=== PATIENT | male | born 1995 | race Caucasian/White ===

== ENCOUNTER 2020-06-06 02:36 | Emergency (ER) | payer OTHER, SELFPAY ==
[2020-06-06 02:56] VITALS: BP 177/79; PULSE 85; RESP 18; TEMP 36.2; O2SAT 99; BMI 32.1
--- NOTE | 2020-06-06 03:06 | ED.DENTAL ---
HPI - Dental/Oral General Chief complaint: Dental/Oral Stated complaint: Dental pain Time Seen by Provider: 06/06/20 03:06 Source: patient Mode of arrival: ambulatory Limitations: no limitations History of Present Illness HPI Narrative: 24-year-old male with dental pain for 2 months that has waxed and waned and he has been on antibiotics previously. He states he has been to see the dentist, but states that the 14. Tooth has continued to give him pain on using hot and cold liquids. In addition, patient is complaining of some left maxillary sinus discomfort but denies any fevers, chills, difficulty breathing, difficulty swallowing. Related Data Previous Rx's Medication Instructions Recorded amoxicillin-pot clavulanate 1 tab PO Q12H 10 Days #20 tab 06/06/20 [Augmentin] Allergies Allergy/AdvReac Type Severity Reaction Status Date / Time No Known Allergies Allergy Unverified 04/09/20 17:51 Review of Systems Review of Systems: Pertinent positives and negatives as stated in HPI 10 point review of systems otherwise negative. PMFSH Past Medical History Source: nursing notes reviewed Medical History HTN (hypertension) Social History Social History Alcohol intake: never Smoking Status: Never smoker Use of substances other than those prescribed or required for medical reasons: No Advance Directives: No Advance Directives Information Provided: No Physical Exam Vital Signs: Vital Signs: Last Vital Signs Temp 97.1 F 06/06/20 02:56 Pulse 85 06/06/20 02:56 Resp 18 06/06/20 02:56 BP 177/79 H 06/06/20 02:56 Pulse Ox 99 06/06/20 02:56 Body Mass Index 32.1 VITAL SIGNS: Reviewed. GENERAL: Well developed, well nourished, in no acute distress. HEAD: Normocephalic/atraumatic, EYES: PERRLA, EOMI intact without pain, no nystagmus/pallor/icterus noted EARS: Ext canals without abnormality, TMs non-bulging and non-erythematous NOSE: Nares patent bilateral OROPHARYNX: no oral lesions noted, posterior pharynx clear and non-erythematous without noted tonsillar enlargement/erythema/exudates; No pain on tapping either molar 13 or 14 and no noted abscess but there is noted swelling to the left cheek. NECK: Supple, no adenopathy LUNGS: Normal breath sounds. No adventitious sounds or accessory muscle use. SpO2<99> CARDIOVASCULAR: Regular rate and rhythm without noted murmurs, no JVD or lower extremity edema. ABDOMEN: Soft, non-tender, non-distended with bowel sounds. No rigidity. No guarding. No palpable masses or hernias noted MUSCULOSKELETAL: No tenderness, deformities, or effusions noted on gross inspection. EXTREMITIES: No cyanosis, clubbing or edema. SKIN: Inspection of the skin reveals no rashes, ulcerations, jaundice, pallor, or petechiae. NEUROLOGIC: Alert and oriented x 4. Strength and sensation to light touch were grossly intact x 4. Course Course Course Narrative: This is a 24-year-old male with history and clinical presentation consistent with tooth infection likely secondary to 1 of the molar roots given the symptoms involving the left maxillary sinus, but there is no evidence of trismus or airway compromise. Patient was treated with combination analgesics and initial antibiotics and will be discharged with a prescription as an outpatient and instructed to follow-up with the dentist as soon as possible. Patient was discharged in stable condition. Discharge Plan Discharge Clinical Impression: Toothache Patient Disposition: Home, Self-Care Instructions: Dental Abscess (ED) Additional Instructions: complete the entire course of antibiotics and please follow-up with a dentist within the next 1-2 days. The patient and/or family acknowledge understanding of results (as applicable), diagnosis, treatment plan, need for follow up, and symptoms that should prompt a return to the emergency room. Prescriptions: New amoxicillin-pot clavulanate [Augmentin] 875-125 mg tablet 1 tab PO Q12H 10 Days Qty: 20 RF: 0 Interventions: ED Discharge Assessment Last Done: 06/06/20 03:51 Discharge Date/Time: 06/06/20 03:52
[2020-06-06] MEDS: Amoxicillin/Potassium Clav 875 MG TABLET PO (03:16)
[2020-06-06] MEDS: Ketorolac Tromethamine 15 MG/ML VIAL IM (03:16)
[2020-06-06] MEDS: Acetaminophen 325 MG TABLET 975 MG PO (03:17)
== END 2020-06-06 03:52 | disposition home or self-care (01) ==
LOC: HO.ED 03:15
PROVIDERS: Emergency Provider Student in an Organized Health Care Education/Training Program
DX: K08.89 Other specified disorders of teeth and supporting structures (principal)
CPT/HCPCS: 96372; 99284; J1885

== ENCOUNTER 2020-08-26 12:37 | Outpatient (REF) | payer OTHER, SELFPAY | END 2020-08-26 12:38 | disposition home or self-care (01) | LOC: HO.LAB 12:37 | PROVIDERS: Visit Provider Internal Medicine | DX: Z20.822 Contact with and (suspected) exposure to COVID-19 (principal) | CPT/HCPCS: 36415; C9803; U0003; U0005 ==

== ENCOUNTER 2021-02-26 08:19 | Emergency (ER) | payer OTHER, SELFPAY ==
[2021-02-26 08:43] VITALS: BP 156/99; PULSE 92; RESP 18; TEMP 36.8; O2SAT 98; BMI 34.8
[2021-02-26] MEDS: Diphth,Pertus(ACell),Tet Adult 0.5 ML SYRINGE IM (10:07)
[2021-02-26] MEDS: Tetracaine HCl/PF 0.5% Oph Sol 4 ML DROPS 3 DROP EYE-LEFT (10:09)
[2021-02-26] MEDS: Fluorescein Sodium STRIP 1 STRIP EYE-LEFT (10:09)
--- NOTE | 2021-02-26 10:10 | ED.EYEPROB ---
HPI - Eye Problem General Chief complaint: Eye Problems Stated complaint: something in pts eye Time Seen by Provider: 02/26/21 09:51 Source: patient Mode of arrival: ambulatory Limitations: no limitations History of Present Illness HPI Narrative: Patient presents ED for left eye irritation. 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 Patient unknown when last tetanus shot. Patient states slight blurry vision. Related Data Previous Rx's Medication Instructions Recorded amoxicillin 875 mg-potassium 1 tab PO Q12H 10 Days #20 tab 06/06/20 clavulanate 125 mg tablet (Augmentin) erythromycin 5 mg/gram (0.5 %) eye 0.5 inch OPHTHALMIC (EYE) QID 7 02/26/21 ointment Days #3.5 g naproxen 500 mg tablet 500 mg PO BID PRN #20 tab 02/26/21 Allergies Allergy/AdvReac Type Severity Reaction Status Date / Time No Known Allergies Allergy Verified 02/26/21 08:42 Review of Systems Review of Systems: Yes all other systems are reviewed and are negative Constitutional: Constitutional: Reports as per HPI and Reports no additional constitutional complaints Eyes: Eyes: Reports as per HPI and Reports no additional eye complaints Comments: Left eye irritation ENT: Reports system reviewed and no additional complaints, except as documented and Reports as per HPI Cardiovascular: Cardiovascular: Reports as per HPI and Reports no additional cardiovascular complaints Respiratory: Respiratory: Reports as per HPI and Reports no additional respiratory complaints Gastrointestinal: Gastrointestinal: Reports as per HPI and Reports no additional gastrointestinal complaints Musculoskeletal: Musculoskeletal: Reports no additional musculoskeletal complaints and Reports as per HPI Integumentary/Breasts: Skin/Breast: Reports system reviewed and no additional complaints, except as docu and Reports as per HPI Neurologic: Reports system reviewed and no additional complaints, except as documented and Reports as per HPI Psychiatric: Psychiatric: Reports no additional psychiatric complaints and Reports as per HPI PMF Past Medical History Medical History HTN (hypertension) Social History Social History Alcohol intake: never Advance Directives: Yes Advance Directives Information Provided: Yes Advance Directives on File: No Physical Exam Vital Signs: Vital Signs: Last Vital Signs Temp 98.3 F 02/26/21 08:43 Pulse 92 02/26/21 08:43 Resp 18 02/26/21 08:43 BP 156/99 H 02/26/21 08:43 Pulse Ox 98 02/26/21 08:43 Body Mass Index 34.8 Const: General: cooperative, healthy appearing, comfortable, no acute distress, well developed, alert, awake and Physically active Orientation/consciousness: patient oriented x3 HENMT: Head: Yes normal to inspection, Yes No palpable skull fracture present, Yes normocephalic, Yes atraumatic and No abrasion Eyes: Other: Right eye are normal. Left eye: Positive for redness. Positive for spec/foreign body on cornea. Tetracaine and fluorescein dye use. Visual acuity of right eye is 20/40. Visual acuity of left eye 20/25 Neck: Neck: Yes normal visual inspection, Yes full ROM, Yes no lymphadenopathy, Yes no meningeal signs, Yes trachea midline, Yes supple and No tender Chest: Chest palpation & inspection: normal inspection of the chest and normal palpation of entire chest wall Resp: Effort & Inspection: normal respiratory effort and able to speak in complete sentences Auscultation: clear to auscultation bilaterally Cardio: Jugular venous distension: no JVD Heart sounds: S1 normal heart sound present and S2 normal heart sound present GI: Inspection: Yes normal to inspection and No abdominal wall ecchymosis Palpation (GI): Soft to palpation, not firm, nontender, no guarding and not rigid : General: No CVA tenderness and Yes no CVA tenderness Back/Spine/Pelvis: Back: no CVA tenderness, No CVA tenderness and No back tenderness Skin: General skin exam: no rashes or lesions noted and elasticity normal Neuro: General: patient oriented x3, gait normal, no meningeal signs and CN's II-XI intact bilaterally Cranial nerves: Yes CN's II-XII intact bilaterally Extrem: General: Yes normal to inspection and Yes full ROM Psych: Appearance: grossly normal, well kempt and not disheveled Course Course Course Narrative: Will have eye exam. Reevaluation(s) Reevaluation #1: Tdap ordered. Partial removal of SPECT from cornea. Some still remain on eye not able to be moved. Will be discharged with erythromycin ointment. Spoke with the office of Dr. Burroughs and they states he was see patient in the clinic. Patient was discharged and sent to Dr. Burroughs office. Time: 10:31 MDM - Eye Problem MDM Narrative Medical decision making narrative: Foreign body I Discharge Plan Discharge Clinical Impression: Foreign body in eye Patient Disposition: Home, Self-Care Instructions: Eye Foreign Body (ED) Additional Instructions: There was partial removal of SPECT any eye. You need to follow-up with eye doctor. You will be discharged with erythromycin ointment. Return to the ED immediately for any eye pain, eye discharge, change in vision, loss of vision, worsening redness, headache, fever, chills, or any other concerning symptoms. Prescriptions: New erythromycin 5 mg/gram (0.5 %) ointment 0.5 inch ophthalmic (eye) QID 7 Days Qty: 3.5 RF: 0 naproxen 500 mg tablet 500 mg PO BID PRN (Reason: pain) Qty: 20 RF: 0 No Action amoxicillin-pot clavulanate [Augmentin] 875-125 mg tablet 1 tab PO Q12H 10 Days Qty: 20 RF: 0 Referrals: Augie Burroughs [Physician] - 2 days (Left eye foreign body in cornea.) Stand Alone Forms: Work/School Release Interventions: ED Discharge Assessment Last Done: 02/26/21 10:53 Discharge Date/Time: 02/26/21 10:57 Print Language: Lithuanian
== END 2021-02-26 10:57 | disposition home or self-care (01) ==
PROVIDERS: Emergency Provider Emergency Medicine Emergency Medical Services
DX: T15.02XA Foreign body in cornea, left eye, initial encounter (principal); I10 Essential (primary) hypertension; X58.XXXA Exposure to other specified factors, initial encounter; Y93.89 Activity, other specified; Y92.89 Other specified places as the place of occurrence of the external cause; Y99.0 Civilian activity done for income or pay
CPT/HCPCS: 90471; 90715; 99284

== ENCOUNTER 2021-04-26 12:36 | Outpatient (REF) | payer OTHER, SELFPAY | END 2021-04-26 12:37 | disposition home or self-care (01) | LOC: HO.LAB 12:36 | PROVIDERS: Visit Provider Internal Medicine | DX: Z20.822 Contact with and (suspected) exposure to COVID-19 (principal) | CPT/HCPCS: U0003; U0005 ==

== ENCOUNTER 2021-07-28 07:39 | Outpatient (REF) | payer OTHER, SELFPAY ==
[2021-07-28 09:00] LABS: COVID-19 Test Negative (Negative)
== END 2021-07-28 07:40 | disposition home or self-care (01) ==
LOC: HO.LAB 07:39
PROVIDERS: Visit Provider Internal Medicine
DX: Z20.822 Contact with and (suspected) exposure to COVID-19 (principal)
CPT/HCPCS: 87635; C9803

== ENCOUNTER 2022-08-06 14:44 | Emergency (ER) | payer OTHER, SELFPAY ==
--- NOTE | ~2022-08-06 | CT_ITS ---
EXAMINATION: CT ABDOMEN AND PELVIS WITH CONTRAST CLINICAL INFORMATION: Left lower quadrant pain with diarrhea and fever COMPARISON: None TECHNIQUE: Multidetector volumetric images were obtained from the superior aspect of the liver through the pubic symphysis following administration 85 mL of Omnipaque 350 intravenous contrast. Sagittal and coronal reformatted images were obtained on the technologist's workstation. Oral contrast: No This CT examination was performed using dose optimization techniques as appropriate, variously including the following: *Automated exposure control *Adjustment of mA and/or kV according to patient size (this includes techniques or standardized protocols for targeted exams where dose is matched to indication/reason for exam; i.e. extremities or head) *Use of iterative reconstruction technique DLP: 839 mGy-cm FINDINGS: LUNG BASES: Small patchy groundglass/nodular opacities the medial lung bases may represent atelectasis, small volume aspiration, or small localized inflammatory infectious process. Correlate clinically. LIVER, GALLBLADDER, AND BILIARY TREE: Normal hepatic size. Diffuse hepatic hypoattenuation/steatosis. No liver lesion or biliary ductal dilation. The gallbladder is unremarkable with no evidence of radiopaque gallstones, gallbladder wall thickening, or obvious pericholecystic inflammatory changes. PANCREAS: Unremarkable. SPLEEN: Unremarkable. ADRENAL GLANDS: Unremarkable. KIDNEYS AND URETERS: The kidneys are normal in size, shape, and attenuation. No hydronephrosis, hydroureter, or calculi seen. No perinephric stranding. BLADDER: Unremarkable. GASTROINTESTINAL TRACT: Small hiatal hernia. No dilated bowel loops. Mild sigmoid diverticulosis. No evidence of acute diverticulitis. Slightly thick-walled appearance of the colon is felt secondary to the lack of distention. No pericolonic inflammatory changes to suggest specific evidence of colitis. Normal appendix. No ascites or free air. ABDOMINAL WALL: Possible small fat-containing left inguinal hernia. LYMPH NODES: There are a few prominent nonspecific mesenteric lymph nodes lung the mesenteric root measuring up to 0.7 cm in short axis, nonspecific. No additional lymphadenopathy. VASCULAR: Unremarkable. PELVIC VISCERA: Unremarkable. OSSEOUS STRUCTURES: No acute fracture or suspicious osseous lesion. Chronic L4 pars defects noted bilaterally. CT/CT abdomen pelvis w IV con IMPRESSION: 1. No acute intra-abdominal process identified. 2. Mild sigmoid diverticulosis. No evidence of acute diverticulitis. No pericolonic inflammatory change or definite wall thickening to suggest colitis. 3. Hepatic steatosis. 4. Small patchy groundglass/nodular opacities at the medial lung bases, which may represent atelectasis, small volume aspiration, or small localized inflammatory infectious process. Correlate clinically.
[2022-08-06 14:46] VITALS: BP 151/90; PULSE 124; RESP 18; TEMP 36.2; O2SAT 96; BMI 34.5
--- NOTE | 2022-08-06 14:53 | ED.ABDPAIN ---
HPI - Abdominal Pain General Chief Complaint: Nausea/Vomiting/Diarrhea <EDWIGE Milligan - Last Filed: 08/06/22 14:58> Stated Complaint: ref from UC, small intestine infection? <EDWIGE Milligan - Last Filed: 08/06/22 14:58> Time Seen by Provider: 08/06/22 15:14 <EDWIGE Milligan - Last Filed: 08/06/22 14:58> Source: patient <EDWIGE Cifuentes Last Filed: 08/06/22 17:59> Mode of arrival: ambulatory <EDWIGE Cifuentes Last Filed: 08/06/22 17:59> Limitations: no limitations <EDWIGE Cifuentes Last Filed: 08/06/22 17:59> History of Present Illness HPI narrative: 26-year-old male presents to the ER from urgent care clinic for evaluation of LLQ pain, nausea, vomiting and diarrhea that started last night. He states that the pain started out slowly a couple of days ago buttock got acutely worse last night. He states it is left lower quadrant/left flank area. He had 1 episode of vomiting today and several episodes of nonbloody stool. He states he has had an episode of pain like this about 6 months ago that resolved on its own. He reports he ruled causes of left lower quadrant pain and states he found results of a colon infection so he went to an urgent care for evaluation. He was found to be febrile and tachycardic there and he was referred to the ER for further evaluation. <EDWIGE Cifuentes Last Filed: 08/06/22 17:59> MD elicited complaint: abdominal pain and other (N/V/D) <EDWIGE Cifuentes Last Filed: 08/06/22 17:59> Onset (ago): day(s) <EDWIGE Cifuentes Last Filed: 08/06/22 17:59> Pain Consistency: other (improving) <EDWIGE Cifuentes Last Filed: 08/06/22 17:59> Location: LLQ and L flank <EDWIGE Cifuentes Last Filed: 08/06/22 17:59> Severity: moderate <EDWIGE Cifuentes Last Filed: 08/06/22 17:59> Quality: stabbing <EDWIGE Cifuentes Last Filed: 08/06/22 17:59> Radiation: none <EDWIGE Cifuentes Last Filed: 08/06/22 17:59> Migration to: no migration <EDWIGE Cifuentes Last Filed: 08/06/22 17:59> Exacerbating factors: nothing <EDWIGE Cifuentes Last Filed: 08/06/22 17:59> Relieving factors: nothing <EDWIGE Cifuentes Last Filed: 08/06/22 17:59> Context: history of similar episodes <EDWIGE Cifuentes Last Filed: 08/06/22 17:59> Associated symptoms: nausea, vomiting, diarrhea, fever and chills <EDWIGE Cifuentes Last Filed: 08/06/22 17:59> Related Data Home Medications: Previous Rx's Medication Instructions Recorded amoxicillin 875 mg-potassium 1 tab PO Q12H 10 days #20 tabs 06/06/20 clavulanate 125 mg tablet (Augmentin) erythromycin 5 mg/gram (0.5 %) eye 0.5 inch ophthalmic (eye) QID 7 02/26/21 ointment days #3.5 grams naproxen 500 mg tablet 500 mg PO BID PRN pain #20 tabs 02/26/21 ondansetron 4 mg disintegrating 4 mg PO Q8H PRN nausea and 08/06/22 tablet vomiting #10 tabs <EDWIGE Milligan Last Filed: 08/06/22 14:58> Allergies/Adverse Reactions: Allergies Allergy/AdvReac Type Severity Reaction Status Date / Time No Known Allergies Allergy Verified 02/26/21 08:42 <EDWIGE Milligan Last Filed: 08/06/22 14:58> Review of Systems Review of Systems Yes all other systems are reviewed and are negative <EDWIGE Cifuentes Last Filed: 08/06/22 17:59> PMFSH Past Medical History Medical History: Medical History HTN (hypertension) <EDWIGE Milligan Last Filed: 08/06/22 14:58> Social History Social History: Social History Alcohol intake: never Advance Directives: No Advance Directives Information Provided: Yes <EDWIGE Milligan - Last Filed: 08/06/22 14:58> Physical Exam ED Vital Signs: Vital Signs - 24 hr 08/06/22 14:46 08/06/22 17:40 08/06/22 19:41 Temperature 97.1 F 99.4 F 98.0 F Pulse Rate 124 H 117 H 107 H Respiratory Rate 18 20 18 Blood Pressure 151/90 H 142/90 H 156/94 H Pulse Oximetry 96 98 98 Oxygen Delivery Method Room Air Room Air Room Air BMI result Body Mass Index 34.5 <EDWIGE Milligan - Last Filed: 08/06/22 14:58> Vital Signs - 24 hr 08/06/22 14:46 08/06/22 17:40 08/06/22 19:41 Temperature 97.1 F 99.4 F 98.0 F Pulse Rate 124 H 117 H 107 H Respiratory Rate 18 20 18 Blood Pressure 151/90 H 142/90 H 156/94 H Pulse Oximetry 96 98 98 Oxygen Delivery Method Room Air Room Air Room Air BMI result Body Mass Index 34.5 <EDWIGE Cifuentes - Last Filed: 08/06/22 17:59> Vital Signs - 24 hr 08/06/22 14:46 08/06/22 17:40 08/06/22 19:41 Temperature 97.1 F 99.4 F 98.0 F Pulse Rate 124 H 117 H 107 H Respiratory Rate 18 20 18 Blood Pressure 151/90 H 142/90 H 156/94 H Pulse Oximetry 96 98 98 Oxygen Delivery Method Room Air Room Air Room Air BMI result Body Mass Index 34.5 <EDWIGE Arredondo - Last Filed: 08/06/22 19:45> Appearance: Alert. Oriented X3. No acute distress. Eyes: Pupils equal, round and reactive to light. ENT: Pharynx normal. Neck: Normal inspection. Neck supple. CVS: Normal heart rate and rhythm. Pulses normal. Respiratory: No respiratory distress. Breath sounds normal. Abdomen: Soft with mild left flank tenderness, left lateral abdominal tenderness without rebound or guarding. no CVA tenderness, +BS x4 Skin: Skin warm and dry. Normal skin color. Normal skin turgor. No rashes. Extremities: No lower extremity edema. Neuro: Oriented X 3. No motor deficit. No sensory deficit. <EDWIGE Cifuentes - Last Filed: 08/06/22 17:59> Course Course Course Narrative: TAMEKA-- 26 yo M hypertension presenting to ED from urgent care complaining of left lower quadrant abdominal pain, nausea, vomiting, and diarrhea since last night. Patient reports fever of 101 at urgent care STAFF RN was given Tylenol. Admits tested negative for COVID-19, the flu, and RSV earlier today. Patient tachycardic in triage in the 120s, Abdomen soft without reproducible tenderness in triage Labs including lactic/blood cultures, IVF, UA ordered <EDWIGE Milligan - Last Filed: 08/06/22 14:58> Reevaluation(s) Reevaluation #1: Labs returning with WBC 19.4 , mild transaminitis. Normal bilirubin and alk-phos. He is tachycardic but afebrile. Lactic acid is normal. Tachycardia could be from pain. Leukocytosis could be reactive from vomiting. Awaiting CT scan. Urinalysis still pending as well. His viral studies are negative. Additional IV fluids have been ordered. <EDWIGE Cifuentes - Last Filed: 08/06/22 17:59> Reevaluation #2: CT scan showing no acute abnormality. <EDWIGE Cifuentes - Last Filed: 08/06/22 17:59> Reevaluation #3: UA without infection. Patient has no reporting some discomfort however pain slightly improved. 2 L of IV fluids completed. Negative CT scan, no acute findings. Patient's leukocytosis likely secondary to reactivity from nausea and vomiting. Patient no longer tachycardic. Patient appears well nontoxic, patient will be discharged home. <EDWIGE Arredondo - Last Filed: 08/06/22 19:45> Medical Decision Making Lab Data Result Diagrams: 08/06/22 15:09 08/06/22 15:09 <EDWIGE Milligan - Last Filed: 08/06/22 14:58> Labs: Lab Results 08/06/22 08/06/22 08/06/22 Range/Units 15:09 15:09 15:09 WBC 19.4 H (4.8-10.8) X10*3/uL RBC 5.77 (4.60-5.80) X10*6/uL Hgb 16.4 (14.0-18.0) g/dl Hct 48.1 (42.0-52.0) % MCV 83.4 (80.0-98.0) fL MCH 28.4 (27.0-33.0) pg MCHC 34.1 (31.0-36.0) g/dl RDW 13.3 (11.0-16.0) % Plt Count 300 (160-400) X10*3/uL MPV 9.6 (9.4-12.4) fL Immature Gran % (Auto) 0.4 (0.0-0.4) % Neut % (Auto) 89.8 H (45-73) % Lymph % (Auto) 4.8 L (20-40) % [place] % (Auto) 4.7 (2-11) % Eos % (Auto) 0.1 (0-4) % Baso % (Auto) 0.2 (0-2) % Lymph # (Auto) 0.9 L (1.2-4.9) X10*3/uL [place] # (Auto) 0.9 (0.1-1.2) X10*3/uL Eos # (Auto) 0.0 (0.0-0.4) X10*3/uL Baso # (Auto) 0.0 (0.0-0.2) X10*3/uL Abs Immat Gran (auto) 0.08 H (0.00-0.03) X10*3/uL Absolute Neuts (auto) 17.4 H (2.0-8.3) x10*3/uL Absolute Nucleated RBC 0.000 (0.0-0.012) X10*3/uL Nucleated RBC % (auto) 0.0 (0.0-0.2) /100WBC Sodium 135 (135-145) mmol/L Potassium 4.0 (3.3-5.1) mmol/L Chloride 106 (96-108) mmol/L Carbon Dioxide 19 L (22-29) mmol/L Anion Gap 14 (12-20) BUN 14 (9-16) mg/dL Creatinine 1.01 (0.5-1.4) mg/dL Estim Creat Clear Calc 142.6 Estimated GFR > 60 Random Glucose 129 H (60-115) mg/dL Lactic Acid 1.1 (0.5-2.0) mmol/L Calcium 8.8 (8.4-10.2) mg/dL Magnesium 1.5 L (1.6-2.6) mg/dL Total Bilirubin 0.9 (0.0-1.0) mg/dL Direct Bilirubin 0.3 (0.0-0.5) mg/dL AST 42 H (5-37) U/L ALT 99 H (0-40) U/L Alkaline Phosphatase 75 (39-117) U/L Total Protein 7.2 (6.5-8.0) g/dL Albumin 4.3 (3.5-5.0) g/dL Lipase 10 (8-78) U/L Urine Color Urine Appearance Urine pH (5.0-9.0) Ur Specific Palmer (1.005-1.025) Urine Protein (Neg-Trace) mg/dL Urine Glucose (UA) (Negative) mg/dL Urine Ketones (Negative) mg/dL Urine Blood (Negative) Urine Nitrite (Negative) Ur Leukocyte Esterase (Negative) Influenza Type A (PCR) (Negative) Influenza Type B (PCR) (Negative) RSV RNA Qual (PCR) (Negative) SARS-CoV-2 RNA (RT-PCR) (Negative) 08/06/22 08/06/22 Range/Units 15:11 19:09 WBC (4.8-10.8) X10*3/uL RBC (4.60-5.80) X10*6/uL Hgb (14.0-18.0) g/dl Hct (42.0-52.0) % MCV (80.0-98.0) fL MCH (27.0-33.0) pg MCHC (31.0-36.0) g/dl RDW (11.0-16.0) % Plt Count (160-400) X10*3/uL MPV (9.4-12.4) fL Immature Gran % (Auto) (0.0-0.4) % Neut % (Auto) (45-73) % Lymph % (Auto) (20-40) % [place] % (Auto) (2-11) % Eos % (Auto) (0-4) % Baso % (Auto) (0-2) % Lymph # (Auto) (1.2-4.9) X10*3/uL [place] # (Auto) (0.1-1.2) X10*3/uL Eos # (Auto) (0.0-0.4) X10*3/uL Baso # (Auto) (0.0-0.2) X10*3/uL Abs Immat Gran (auto) (0.00-0.03) X10*3/uL Absolute Neuts (auto) (2.0-8.3) x10*3/uL Absolute Nucleated RBC (0.0-0.012) X10*3/uL Nucleated RBC % (auto) (0.0-0.2) /100WBC Sodium (135-145) mmol/L Potassium (3.3-5.1) mmol/L Chloride (96-108) mmol/L Carbon Dioxide (22-29) mmol/L Anion Gap (12-20) BUN (9-16) mg/dL Creatinine (0.5-1.4) mg/dL Estim Creat Clear Calc Estimated GFR Random Glucose (60-115) mg/dL Lactic Acid (0.5-2.0) mmol/L Calcium (8.4-10.2) mg/dL Magnesium (1.6-2.6) mg/dL Total Bilirubin (0.0-1.0) mg/dL Direct Bilirubin (0.0-0.5) mg/dL AST (5-37) U/L ALT (0-40) U/L Alkaline Phosphatase (39-117) U/L Total Protein (6.5-8.0) g/dL Albumin (3.5-5.0) g/dL Lipase (8-78) U/L Urine Color Yellow Urine Appearance Clear Urine pH 5.5 (5.0-9.0) Ur Specific Palmer >= 1.030 H (1.005-1.025) Urine Protein Negative (Neg-Trace) mg/dL Urine Glucose (UA) Negative (Negative) mg/dL Urine Ketones Negative (Negative) mg/dL Urine Blood Negative (Negative) Urine Nitrite Negative (Negative) Ur Leukocyte Esterase Negative (Negative) Influenza Type A (PCR) NEGATIVE (Negative) Influenza Type B (PCR) NEGATIVE (Negative) RSV RNA Qual (PCR) NEGATIVE (Negative) SARS-CoV-2 RNA (RT-PCR) NEGATIVE (Negative) <EDWIGE Milligan - Last Filed: 08/06/22 14:58> Lab Results 08/06/22 08/06/22 08/06/22 Range/Units 15:09 15:09 15:09 WBC 19.4 H (4.8-10.8) X10*3/uL RBC 5.77 (4.60-5.80) X10*6/uL Hgb 16.4 (14.0-18.0) g/dl Hct 48.1 (42.0-52.0) % MCV 83.4 (80.0-98.0) fL MCH 28.4 (27.0-33.0) pg MCHC 34.1 (31.0-36.0) g/dl RDW 13.3 (11.0-16.0) % Plt Count 300 (160-400) X10*3/uL MPV 9.6 (9.4-12.4) fL Immature Gran % (Auto) 0.4 (0.0-0.4) % Neut % (Auto) 89.8 H (45-73) % Lymph % (Auto) 4.8 L (20-40) % [place] % (Auto) 4.7 (2-11) % Eos % (Auto) 0.1 (0-4) % Baso % (Auto) 0.2 (0-2) % Lymph # (Auto) 0.9 L (1.2-4.9) X10*3/uL [place] # (Auto) 0.9 (0.1-1.2) X10*3/uL Eos # (Auto) 0.0 (0.0-0.4) X10*3/uL Baso # (Auto) 0.0 (0.0-0.2) X10*3/uL Abs Immat Gran (auto) 0.08 H (0.00-0.03) X10*3/uL Absolute Neuts (auto) 17.4 H (2.0-8.3) x10*3/uL Absolute Nucleated RBC 0.000 (0.0-0.012) X10*3/uL Nucleated RBC % (auto) 0.0 (0.0-0.2) /100WBC Sodium 135 (135-145) mmol/L Potassium 4.0 (3.3-5.1) mmol/L Chloride 106 (96-108) mmol/L Carbon Dioxide 19 L (22-29) mmol/L Anion Gap 14 (12-20) BUN 14 (9-16) mg/dL Creatinine 1.01 (0.5-1.4) mg/dL Estim Creat Clear Calc 142.6 Estimated GFR > 60 Random Glucose 129 H (60-115) mg/dL Lactic Acid 1.1 (0.5-2.0) mmol/L Calcium 8.8 (8.4-10.2) mg/dL Magnesium 1.5 L (1.6-2.6) mg/dL Total Bilirubin 0.9 (0.0-1.0) mg/dL Direct Bilirubin 0.3 (0.0-0.5) mg/dL AST 42 H (5-37) U/L ALT 99 H (0-40) U/L Alkaline Phosphatase 75 (39-117) U/L Total Protein 7.2 (6.5-8.0) g/dL Albumin 4.3 (3.5-5.0) g/dL Lipase 10 (8-78) U/L Urine Color Urine Appearance Urine pH (5.0-9.0) Ur Specific Palmer (1.005-1.025) Urine Protein (Neg-Trace) mg/dL Urine Glucose (UA) (Negative) mg/dL Urine Ketones (Negative) mg/dL Urine Blood (Negative) Urine Nitrite (Negative) Ur Leukocyte Esterase (Negative) Influenza Type A (PCR) (Negative) Influenza Type B (PCR) (Negative) RSV RNA Qual (PCR) (Negative) SARS-CoV-2 RNA (RT-PCR) (Negative) 08/06/22 08/06/22 Range/Units 15:11 19:09 WBC (4.8-10.8) X10*3/uL RBC (4.60-5.80) X10*6/uL Hgb (14.0-18.0) g/dl Hct (42.0-52.0) % MCV (80.0-98.0) fL MCH (27.0-33.0) pg MCHC (31.0-36.0) g/dl RDW (11.0-16.0) % Plt Count (160-400) X10*3/uL MPV (9.4-12.4) fL Immature Gran % (Auto) (0.0-0.4) % Neut % (Auto) (45-73) % Lymph % (Auto) (20-40) % [place] % (Auto) (2-11) % Eos % (Auto) (0-4) % Baso % (Auto) (0-2) % Lymph # (Auto) (1.2-4.9) X10*3/uL [place] # (Auto) (0.1-1.2) X10*3/uL Eos # (Auto) (0.0-0.4) X10*3/uL Baso # (Auto) (0.0-0.2) X10*3/uL Abs Immat Gran (auto) (0.00-0.03) X10*3/uL Absolute Neuts (auto) (2.0-8.3) x10*3/uL Absolute Nucleated RBC (0.0-0.012) X10*3/uL Nucleated RBC % (auto) (0.0-0.2) /100WBC Sodium (135-145) mmol/L Potassium (3.3-5.1) mmol/L Chloride (96-108) mmol/L Carbon Dioxide (22-29) mmol/L Anion Gap (12-20) BUN (9-16) mg/dL Creatinine (0.5-1.4) mg/dL Estim Creat Clear Calc Estimated GFR Random Glucose (60-115) mg/dL Lactic Acid (0.5-2.0) mmol/L Calcium (8.4-10.2) mg/dL Magnesium (1.6-2.6) mg/dL Total Bilirubin (0.0-1.0) mg/dL Direct Bilirubin (0.0-0.5) mg/dL AST (5-37) U/L ALT (0-40) U/L Alkaline Phosphatase (39-117) U/L Total Protein (6.5-8.0) g/dL Albumin (3.5-5.0) g/dL Lipase (8-78) U/L Urine Color Yellow Urine Appearance Clear Urine pH 5.5 (5.0-9.0) Ur Specific Palmer >= 1.030 H (1.005-1.025) Urine Protein Negative (Neg-Trace) mg/dL Urine Glucose (UA) Negative (Negative) mg/dL Urine Ketones Negative (Negative) mg/dL Urine Blood Negative (Negative) Urine Nitrite Negative (Negative) Ur Leukocyte Esterase Negative (Negative) Influenza Type A (PCR) NEGATIVE (Negative) Influenza Type B (PCR) NEGATIVE (Negative) RSV RNA Qual (PCR) NEGATIVE (Negative) SARS-CoV-2 RNA (RT-PCR) NEGATIVE (Negative) <EDWIGE Cifuentes - Last Filed: 08/06/22 17:59> Lab Results 08/06/22 08/06/22 08/06/22 Range/Units 15:09 15:09 15:09 WBC 19.4 H (4.8-10.8) X10*3/uL RBC 5.77 (4.60-5.80) X10*6/uL Hgb 16.4 (14.0-18.0) g/dl Hct 48.1 (42.0-52.0) % MCV 83.4 (80.0-98.0) fL MCH 28.4 (27.0-33.0) pg MCHC 34.1 (31.0-36.0) g/dl RDW 13.3 (11.0-16.0) % Plt Count 300 (160-400) X10*3/uL MPV 9.6 (9.4-12.4) fL Immature Gran % (Auto) 0.4 (0.0-0.4) % Neut % (Auto) 89.8 H (45-73) % Lymph % (Auto) 4.8 L (20-40) % [place] % (Auto) 4.7 (2-11) % Eos % (Auto) 0.1 (0-4) % Baso % (Auto) 0.2 (0-2) % Lymph # (Auto) 0.9 L (1.2-4.9) X10*3/uL [place] # (Auto) 0.9 (0.1-1.2) X10*3/uL Eos # (Auto) 0.0 (0.0-0.4) X10*3/uL Baso # (Auto) 0.0 (0.0-0.2) X10*3/uL Abs Immat Gran (auto) 0.08 H (0.00-0.03) X10*3/uL Absolute Neuts (auto) 17.4 H (2.0-8.3) x10*3/uL Absolute Nucleated RBC 0.000 (0.0-0.012) X10*3/uL Nucleated RBC % (auto) 0.0 (0.0-0.2) /100WBC Sodium 135 (135-145) mmol/L Potassium 4.0 (3.3-5.1) mmol/L Chloride 106 (96-108) mmol/L Carbon Dioxide 19 L (22-29) mmol/L Anion Gap 14 (12-20) BUN 14 (9-16) mg/dL Creatinine 1.01 (0.5-1.4) mg/dL Estim Creat Clear Calc 142.6 Estimated GFR > 60 Random Glucose 129 H (60-115) mg/dL Lactic Acid 1.1 (0.5-2.0) mmol/L Calcium 8.8 (8.4-10.2) mg/dL Magnesium 1.5 L (1.6-2.6) mg/dL Total Bilirubin 0.9 (0.0-1.0) mg/dL Direct Bilirubin 0.3 (0.0-0.5) mg/dL AST 42 H (5-37) U/L ALT 99 H (0-40) U/L Alkaline Phosphatase 75 (39-117) U/L Total Protein 7.2 (6.5-8.0) g/dL Albumin 4.3 (3.5-5.0) g/dL Lipase 10 (8-78) U/L Urine Color Urine Appearance Urine pH (5.0-9.0) Ur Specific Palmer (1.005-1.025) Urine Protein (Neg-Trace) mg/dL Urine Glucose (UA) (Negative) mg/dL Urine Ketones (Negative) mg/dL Urine Blood (Negative) Urine Nitrite (Negative) Ur Leukocyte Esterase (Negative) Influenza Type A (PCR) (Negative) Influenza Type B (PCR) (Negative) RSV RNA Qual (PCR) (Negative) SARS-CoV-2 RNA (RT-PCR) (Negative) 08/06/22 08/06/22 Range/Units 15:11 19:09 WBC (4.8-10.8) X10*3/uL RBC (4.60-5.80) X10*6/uL Hgb (14.0-18.0) g/dl Hct (42.0-52.0) % MCV (80.0-98.0) fL MCH (27.0-33.0) pg MCHC (31.0-36.0) g/dl RDW (11.0-16.0) % Plt Count (160-400) X10*3/uL MPV (9.4-12.4) fL Immature Gran % (Auto) (0.0-0.4) % Neut % (Auto) (45-73) % Lymph % (Auto) (20-40) % [place] % (Auto) (2-11) % Eos % (Auto) (0-4) % Baso % (Auto) (0-2) % Lymph # (Auto) (1.2-4.9) X10*3/uL [place] # (Auto) (0.1-1.2) X10*3/uL Eos # (Auto) (0.0-0.4) X10*3/uL Baso # (Auto) (0.0-0.2) X10*3/uL Abs Immat Gran (auto) (0.00-0.03) X10*3/uL Absolute Neuts (auto) (2.0-8.3) x10*3/uL Absolute Nucleated RBC (0.0-0.012) X10*3/uL Nucleated RBC % (auto) (0.0-0.2) /100WBC Sodium (135-145) mmol/L Potassium (3.3-5.1) mmol/L Chloride (96-108) mmol/L Carbon Dioxide (22-29) mmol/L Anion Gap (12-20) BUN (9-16) mg/dL Creatinine (0.5-1.4) mg/dL Estim Creat Clear Calc Estimated GFR Random Glucose (60-115) mg/dL Lactic Acid (0.5-2.0) mmol/L Calcium (8.4-10.2) mg/dL Magnesium (1.6-2.6) mg/dL Total Bilirubin (0.0-1.0) mg/dL Direct Bilirubin (0.0-0.5) mg/dL AST (5-37) U/L ALT (0-40) U/L Alkaline Phosphatase (39-117) U/L Total Protein (6.5-8.0) g/dL Albumin (3.5-5.0) g/dL Lipase (8-78) U/L Urine Color Yellow Urine Appearance Clear Urine pH 5.5 (5.0-9.0) Ur Specific Palmer >= 1.030 H (1.005-1.025) Urine Protein Negative (Neg-Trace) mg/dL Urine Glucose (UA) Negative (Negative) mg/dL Urine Ketones Negative (Negative) mg/dL Urine Blood Negative (Negative) Urine Nitrite Negative (Negative) Ur Leukocyte Esterase Negative (Negative) Influenza Type A (PCR) NEGATIVE (Negative) Influenza Type B (PCR) NEGATIVE (Negative) RSV RNA Qual (PCR) NEGATIVE (Negative) SARS-CoV-2 RNA (RT-PCR) NEGATIVE (Negative) <EDWIGE Arredondo - Last Filed: 08/06/22 19:45> Medications Administered Discontinued Medications Generic Name Dose Route Start Last Admin Trade Name Freq PRN Reason Stop Dose Admin Sodium Chloride 1,000 mls @ 999 mls/hr 08/06/22 15:00 08/06/22 16:39 Ns IV 08/06/22 16:00 Infused .Q1H1M TALON Infusion Sodium Chloride 1,000 mls @ 999 mls/hr 08/06/22 17:15 08/06/22 19:12 Ns IVCONT 08/06/22 18:15 Infused .Q1H1M TALON Infusion Iohexol 100 ml 08/06/22 16:31 08/06/22 16:32 Iohexol 350 Mg/Ml 100 Ml Infus..Btl IV 08/06/22 16:32 85 ml ONCE ONE Administration Ketorolac Tromethamine 30 mg 08/06/22 17:16 08/06/22 17:31 Ketorolac Tromethamine 30 Mg/Ml Vial IVPUSH 08/06/22 17:17 30 mg ONCE ONE Administration Ondansetron HCl 4 mg 08/06/22 17:40 08/06/22 17:46 Ondansetron Hcl 4 Mg/2 Ml Vial IVPUSH 08/06/22 17:41 4 mg ONCE ONE Administration <EDWIGE Milligan - Last Filed: 08/06/22 14:58> Medications Administered Discontinued Medications Generic Name Dose Route Start Last Admin Trade Name Freq PRN Reason Stop Dose Admin Sodium Chloride 1,000 mls @ 999 mls/hr 08/06/22 15:00 08/06/22 16:39 Ns IV 08/06/22 16:00 Infused .Q1H1M TALON Infusion Sodium Chloride 1,000 mls @ 999 mls/hr 08/06/22 17:15 08/06/22 19:12 Ns IVCONT 08/06/22 18:15 Infused .Q1H1M TALON Infusion Iohexol 100 ml 08/06/22 16:31 08/06/22 16:32 Iohexol 350 Mg/Ml 100 Ml Infus..Btl IV 08/06/22 16:32 85 ml ONCE ONE Administration Ketorolac Tromethamine 30 mg 08/06/22 17:16 08/06/22 17:31 Ketorolac Tromethamine 30 Mg/Ml Vial IVPUSH 08/06/22 17:17 30 mg ONCE ONE Administration Ondansetron HCl 4 mg 08/06/22 17:40 08/06/22 17:46 Ondansetron Hcl 4 Mg/2 Ml Vial IVPUSH 08/06/22 17:41 4 mg ONCE ONE Administration <EDWIGE Cifuentes - Last Filed: 08/06/22 17:59> Medications Administered Discontinued Medications Generic Name Dose Route Start Last Admin Trade Name Freq PRN Reason Stop Dose Admin Sodium Chloride 1,000 mls @ 999 mls/hr 08/06/22 15:00 08/06/22 16:39 Ns IV 08/06/22 16:00 Infused .Q1H1M TALON Infusion Sodium Chloride 1,000 mls @ 999 mls/hr 08/06/22 17:15 08/06/22 19:12 Ns IVCONT 08/06/22 18:15 Infused .Q1H1M TALON Infusion Iohexol 100 ml 08/06/22 16:31 08/06/22 16:32 Iohexol 350 Mg/Ml 100 Ml Infus..Btl IV 08/06/22 16:32 85 ml ONCE ONE Administration Ketorolac Tromethamine 30 mg 08/06/22 17:16 08/06/22 17:31 Ketorolac Tromethamine 30 Mg/Ml Vial IVPUSH 08/06/22 17:17 30 mg ONCE ONE Administration Ondansetron HCl 4 mg 08/06/22 17:40 08/06/22 17:46 Ondansetron Hcl 4 Mg/2 Ml Vial IVPUSH 08/06/22 17:41 4 mg ONCE ONE Administration <EDWIGE Arredondo - Last Filed: 08/06/22 19:45> Discharge Plan Discharge Clinical Impression: Gastroenteritis <EDWIGE Milligan Last Filed: 08/06/22 14:58> Patient Disposition: Home, Self-Care <EDWIGE Milligan Last Filed: 08/06/22 14:58> Instructions: Gastroenteritis (ED) <EDWIGE Milligan Last Filed: 08/06/22 14:58> Additional Instructions: You lab workup today showed an elevated white blood cell count but your CT scan did not show any causes of your pain or any evidence of infection You most likely have a viral GI bug also known as gastroenteritis. Treatment is supportive care, symptoms usually resolve on their own in 48-72 hours. Recommend rest and plenty of oral hydration. Stick to a bland diet like soup and toast while you are not feeling well. Take the prescribed medication as needed for nausea. Recommend over the counter Pepto Bismol or Imodium for upset stomach and diarrhea. Follow up with your doctor as needed. If you develop new or worsening symptoms call 911 or come back to the ER for further evaluation. <EDWIGE Milligan Last Filed: 08/06/22 14:58> Prescriptions: New ondansetron 4 mg tablet,disintegrating 4 mg PO Q8H PRN (Reason: nausea and vomiting) Qty: 10 0RF No Action amoxicillin-pot clavulanate [Augmentin] 875-125 mg tablet 1 tab PO Q12H 10 Days Qty: 20 0RF erythromycin 5 mg/gram (0.5 %) ointment 0.5 inch ophthalmic (eye) QID 7 Days Qty: 3.5 0RF naproxen 500 mg tablet 500 mg PO BID PRN (Reason: pain) Qty: 20 0RF <EDWIGE Milligan - Last Filed: 08/06/22 14:58> Referrals: [facility] [place] [facility] [Provider Group] - 2 days Physician,Unknown J [Primary Care Provider] - 2 days <EDWIGE Milligan - Last Filed: 08/06/22 14:58> Stand Alone Forms: Work/School Release <EDWIGE Milligan - Last Filed: 08/06/22 14:58>
[2022-08-06 15:16] LABS: MANUAL DIFF FLAG NO
[2022-08-06 15:18] LABS: Basophils Percent Auto 0.2 % (0-2); Eosinophils Percent Auto 0.1 % (0-4); Hematocrit 48.1 % (42.0-52.0); Hemoglobin 16.4 g/dl (14.0-18.0); Imm Gran Abs Auto 0.08 X10*3/uL (0.00-0.03); Imm Gran Pct Auto 0.4 % (0.0-0.4); Lymphocytes Absolute Auto 0.9 X10*3/uL (1.2-4.9); Lymphocytes Percent Auto 4.8 % (20-40); Mean Corpuscular HGB Conc 34.1 g/dl (31.0-36.0); Mean Corpuscular Hemoglobin 28.4 pg (27.0-33.0); Mean Corpuscular Volume 83.4 fL (80.0-98.0); Mean Platelet Volume 9.6 fL (9.4-12.4); Monocytes Absolute Auto 0.9 X10*3/uL (0.1-1.2); Monocytes Percent Auto 4.7 % (2-11); Neutrophils Absolute Auto 17.4 x10*3/uL (2.0-8.3); Neutrophils Percent Auto 89.8 % (45-73); Platelet Count 300 X10*3/uL (160-400); Red Blood Count 5.77 X10*6/uL (4.60-5.80); Red Cell Distribution Width 13.3 % (11.0-16.0); White Blood Count 19.4 X10*3/uL (4.8-10.8)
[2022-08-06 15:31] LABS: Lactic Acid 1.1 mmol/L (0.5-2.0)
[2022-08-06 15:35] LABS: Alanine Aminotransferase 99 U/L (0-40); Albumin Level 4.3 g/dL (3.5-5.0); Alkaline Phosphatase 75 U/L (39-117); Anion Gap 14 (12-20); Aspartate Amino Transferase 42 U/L (5-37); Bilirubin Direct 0.3 mg/dL (0.0-0.5); Bilirubin Total 0.9 mg/dL (0.0-1.0); Blood Urea Nitrogen 14 mg/dL (9-16); Calcium 8.8 mg/dL (8.4-10.2); Carbon Dioxide 19 mmol/L (22-29); Chloride 106 mmol/L (96-108); Creatinine Clr Calc Pharmacy 142.6; Estimated Glomerular Filt Rate > 60; Glucose Random 129 mg/dL (60-115); Lipase 10 U/L (8-78); Magnesium 1.5 mg/dL (1.6-2.6); Sodium 135 mmol/L (135-145); Total Protein 7.2 g/dL (6.5-8.0)
[2022-08-06] MEDS: 0.9 % Sodium Chloride 1,000 ML 999 ML IV (15:37)
[2022-08-06 15:54] LABS: Influenza A PCR NEGATIVE (Negative); Influenza B PCR NEGATIVE (Negative); Resp Syncy Virus RNA Qual PCR NEGATIVE (Negative); SARS COV2 PCR INHOUSE NEGATIVE (Negative)
[2022-08-06] MEDS: iohexoL 350 MG/ML 100 ML INFUS..BTL IV (16:32)
[2022-08-06] MEDS: Ketorolac Tromethamine 30 MG/ML VIAL IVPUSH (17:31)
[2022-08-06] MEDS: 0.9 % Sodium Chloride 1,000 ML 999 ML IVCONT (17:32)
[2022-08-06 17:40] VITALS: BP 142/90; PULSE 117; RESP 20; TEMP 37.4; O2SAT 98
[2022-08-06] MEDS: ondansetron HCL 4 MG/2 ML VIAL IVPUSH (17:46)
--- NOTE | 2022-08-06 19:12 | PC.NURSE ---
this rn assumed care of pt @ 1900. pt able to provide urine sample at this time. sample sent down to the lab. pt resting comfortably on stretcher at this time. pt denies n/v at this time
[2022-08-06 19:18] LABS: Appearance Urine Clear; Color Urine Yellow; Glucose Urine UA Negative (Negative); Leukocyte Esterase Urine Negative (Negative); Nitrite Urine Negative (Negative); PH 5.5 (5.0-9.0); Specific Gravity - Urine >= 1.030 (1.005-1.025); Urine Blood Negative (Negative); Urine Ketones Negative (Negative); Urine Protein Negative (Neg-Trace)
[2022-08-06 19:41] VITALS: BP 156/94; PULSE 107; RESP 18; TEMP 36.7; O2SAT 98
[2022-08-06 20:06] VITALS: PULSE 98
[2022-08-06] MEDS: Morphine Sulfate 2 MG/ML CARTRIDGE IVPUSH (20:07)
--- NOTE | 2022-08-06 20:12 | PC.NURSE ---
pt medicated per provider order for 7/10 abd pain.
== END 2022-08-06 20:15 | disposition home or self-care (01) ==
PROVIDERS: Physician Assistant; Emergency Provider Emergency Medicine
DX: K52.9 Noninfective gastroenteritis and colitis, unspecified (principal); R00.0 Tachycardia, unspecified; R10.32 Left lower quadrant pain; I10 Essential (primary) hypertension; Z20.822 Contact with and (suspected) exposure to COVID-19; Z20.828 Contact with and (suspected) exposure to other viral communicable diseases
CPT/HCPCS: 0241U; 36415; 74177; 80048; 80076; 81003; 83605; 83690; 83735; 85025; 87040; 96361; 96374; 96375; 99284; J1885; J2270; J2405; Q9967